=== PATIENT | female | born 1935 | race Caucasian/White ===

== ENCOUNTER → 2017-04-19 | Outpatient (CLI) | payer MEDICARE, BC ==
[~2017-04-19] MED LIST: AMBIEN 5MG TABLE5 MG PO; BP MED; CALCIUM + D 6001 TAB PO; CO Q-1050 MG PO; CRANBERRY1 CAP PO; CULTURELLE10 Billion PO; ESTRACE0.1 MG/GM VG; GLUCOSAMINE S1000 MG PO; HCTZ 25MG TAB25 MG PO; LIPITOR 10MG10 MG PO; LUTEIN20 MG; MACRODANTIN50 MG/CA1 PO; MAREPA1200 MG PO; NEXIUM 20MG CAP20 MG PO; NEXIUM 40MG40 MG PO; OMEPRAZOLE40 MG PO; PEPCID 20MG TAB20 MG PO; PRILOSEC 20MG20 MG PO; PRINIVIL10 MG PO; TRIAMTERENE AND1 TA1 PO; VITAMIN D31000 IU PO; WATER PILL; ZOLPIDEM TART5 MG PO; [UNRECOGNIZED DRUG - OTHER] PO
== END ==
LOC: COL.RAD 07:44
DX: M48.061 Spinal stenosis, lumbar region without neurogenic claudication (principal); M51.16 Intervertebral disc disorders with radiculopathy, lumbar region; M46.86 Other specified inflammatory spondylopathies, lumbar region; M47.26 Other spondylosis with radiculopathy, lumbar region

== ENCOUNTER → 2017-06-24 | Outpatient (CLI) | payer MEDICARE, BC ==
[~2017-06-24] MED LIST changes: +ADVIL200 MG PO; +CALCIUM 600MG+D1 TAB PO; +CIPRO750 MG PO; +CRANBERRY FRUI405 MG PO; -CRANBERRY1 CAP PO; +EPA FISH OIL1 SGL PO; +LUTEIN20 M1 PO; -LUTEIN20 MG; -MAREPA1200 MG PO
== END ==
LOC: MC.RAD 09:34
DX: Z12.31 Encounter for screening mammogram for malignant neoplasm of breast (principal)

== ENCOUNTER 2018-06-16 09:00 | Outpatient (RCR) | payer MEDICARE, BC | END 2018-07-19 | disposition home or self-care (01) | LOC: WSST | DX: I10 Essential (primary) hypertension (principal); R49.0 Dysphonia; J38.7 Other diseases of larynx | CPT/HCPCS: G9171-GN; G9172-GN ==

== ENCOUNTER → 2018-07-15 | Outpatient (CLI) | payer MEDICARE, BC | LOC: COL.RAD 08:40 | DX: R74.0 Nonspecific elevation of levels of transaminase and lactic acid dehydrogenase [LDH] (principal); Z90.49 Acquired absence of other specified parts of digestive tract ==

== ENCOUNTER → 2018-07-21 | Outpatient (CLI) | payer MEDICARE, BC | LOC: MC.RAD 07:54 | DX: Z12.31 Encounter for screening mammogram for malignant neoplasm of breast (principal) ==

== ENCOUNTER → 2019-08-17 | Outpatient (CLI) | payer MEDICARE, BC | LOC: MC.RAD 08:45 | DX: Z12.31 Encounter for screening mammogram for malignant neoplasm of breast (principal) ==

== ENCOUNTER → 2020-08-20 | Outpatient (CLI) | payer MEDICARE, BC | LOC: MC.RAD 08:58 | DX: Z12.31 Encounter for screening mammogram for malignant neoplasm of breast (principal) ==

== ENCOUNTER 2020-10-16 20:16 | Observation (INO) | payer MEDICARE, BC ==
[~2020-10-16] VITALS: Ht 160 cm; Wt 71.3 kg
[2020-10-16] MEDS ORDERED: COZAAR100 MG PO (20:34)
[2020-10-16] MEDS ORDERED: PROTONIX 40MG T40 MG PO (20:34)
[2020-10-16] MEDS ORDERED: SONATA5 MG PO (20:35)
[2020-10-16 20:56] LABS: BASO % 0.8 % (0.0-2.0); EOS # 0.3 (0.0-0.7); GRAN # 2.5 (1.4-6.5); GRAN % 47.9 % (42.2-75.2); HEMATOCRIT 41.4 % (37.0-47.0); HEMOGLOBIN 12.7 g/dl (12.5-16.0); LYMPH # 1.9 (1.2-3.4); LYMPH % 37.2 % (20.0-51.0); MEAN CELL VOLUME 90 fl (80.0-100.0); MEAN CORPUSCULAR HEMOGLOBIN 28 pg (27.0-31.0); MEAN CORPUSCULAR HGB CONC 31 g/dl (33.0-37.0); MEAN PLATELET VOLUME 9.8 fl (7.4-10.4); MONO # 0.4 (0.1-0.6); MONO % 7.7 % (1.7-9.3); PLATELET COUNT 209 K/mm3 (130-400); RED BLOOD COUNT 4.61 M/mm3 (4.10-5.30); REDCELL DISTRIBUTION WIDTH-CV 12.8 % (11.5-14.5)
[2020-10-16] MEDS ORDERED: LASIX 20MG TABL20 MG PO (20:57)
[2020-10-16] MEDS ORDERED: ESTROGEL0.06% TOP (20:58)
[2020-10-16] MEDS ORDERED: TOPROL XL 25MG25 MG PO (21:01)
[2020-10-16] MEDS ORDERED: ASPIRIN 81M81 MG/TA2 PO (21:03)
[2020-10-16] MEDS ORDERED: ESTRACE0.1 MG/GM VG (21:22)
[2020-10-16 21:23] LABS: ALANINE AMINOTRANSFERASE 16 U/L (4-34); ALBUMIN 4.2 gm/dL (3.5-5.0); ALKALINE PHOSPHATASE 71 U/L (50-136); ANION GAP 8 mmol/L (7-16); AST,SGOT 37 U/L (15-37); BILIRUBIN,TOTAL 0.4 mg/dL (0.0-1.0); BLOOD UREA NITROGEN 17 mg/dL (7-17); CALCIUM 10.4 mg/dL (8.4-10.2); CARBON DIOXIDE 25 mmol/L (22-30); CHLORIDE 106 mmol/L (98-107); CREATININE, serum 1.05 (0.52-1.25); GLUCOSE 121 mg/dL (74-106); POTASSIUM 3.7 mmol/L (3.4-5.0); SODIUM 138 mmol/L (137-145); TOTAL PROTEIN 7.4 gm/dL (6.4-8.2)
[2020-10-16 21:37] LABS: TROPONIN-I < 0.012 ng/mL (0.000-0.035)
[2020-10-16 22:57] LABS: INR 0.9 (0.8-3.0); PROTHROMBIN TIME 10.5 SECONDS (9.7-12.8)
[2020-10-16 23:01] LABS: CHOLESTEROL RISK RATIO 2.1; MAGNESIUM 2.3 mg/dL (1.6-2.3)
[2020-10-16 23:47] VITALS: BP 150/72; PULSE 74; TEMP 97.7
[2020-10-17] VITALS (12 sets, daily range): BP systolic 108–166; BP diastolic 48–77; PULSE 60–86; TEMP 97.7–98.1
--- NOTE | 2020-10-17 04:03 | NUR ---
PATIENT ARRIVED TO ROOM 317 AND WAS ABLE TO AMBULATE INDEPENDENTLY TO HER BED. HEPARIN DRIP INFUSING. PATIENT ALERT AND ORIENTED X'4, V/S STABLE. NO REQUESTS OR CONCERNS VERBALIZED BY PATIENT.
[2020-10-17 05:32] LABS: HEMATOCRIT 37.1 % (37.0-47.0); HEMOGLOBIN 11.3 g/dl (12.5-16.0); MEAN CELL VOLUME 89 fl (80.0-100.0); MEAN CORPUSCULAR HEMOGLOBIN 27 pg (27.0-31.0); MEAN CORPUSCULAR HGB CONC 31 g/dl (33.0-37.0); MEAN PLATELET VOLUME 9.3 fl (7.4-10.4); PLATELET COUNT 177 K/mm3 (130-400); RED BLOOD COUNT 4.16 M/mm3 (4.10-5.30); REDCELL DISTRIBUTION WIDTH-CV 12.8 % (11.5-14.5)
--- NOTE | 2020-10-17 06:14 | NUR ---
HEPARIN DRIP STOPPED AT 0600. RATE CHANGED TO 5.5ML'S PER HOUR AND WILL RESTART AT 0700 AND REDRAW AT 1300 ORDERED.
--- NOTE | 2020-10-17 07:35 | NUR ---
ECHO AT BEDSIDE
--- NOTE | 2020-10-17 08:00 | NUR ---
PATIENT IS A&O. VSS WITH TELE INPLACE. PATIENT DENIES SOA OR CHEST PAIN. ECHO OBTAINED THIS AM. NPO FOR HEART CATH LATER TODAY. HEAD TO TOE ASSESSMENT COMPLETE, SEE CHARTING. AM MEDS GIVEN. NO OTHER NEEDS AT THIS TIME. CALL LIGHT IN REACH.
--- NOTE | 2020-10-17 10:12 | NUR ---
Initial visit; Patient thanked Ob Tech for offering God's blessings and letting her know of the availability of spiritual care at our hospital.
--- NOTE | 2020-10-17 14:00 | NUR ---
PATIENT GOING DOWN TO SIGNAL CIRCUIT DESIGNER. CONSENT ON CHART.
--- NOTE | 2020-10-17 15:45 | NUR ---
Forestry Aid Technician met with the patient's , Ld to complete intake. The patient was out of the room for a procedure. The patient and Ld live in [place]. The patient does not use DME and is independent with ADLs. The patient's PCP is Dr. Gary and patient receives medications from [facility]. The patient has advanced directives in the form of a living will in the EMR. The plan is to return home at discharge. Ld will provide transportation. Discharge disposition: Return home with , Ld
--- NOTE | 2020-10-17 15:59 | NUR ---
PATIENT BACK IN ROOM POST HEART CATH. NO INTERVENTION. VSS. AT BEDSIDE.
--- NOTE | 2020-10-17 18:00 | NUR ---
RELEASED 5CC OF AIR FROM [facility] PER ORDERS. IF NO BLEEDING WILL REPEAT LETTING OUT ANOTHER 5CC OF AIR IN 30 MINUTES.
--- NOTE | 2020-10-17 18:30 | NUR ---
PATIENT C/O FLORES, GAVE PRN TYLENOL. RELEASED ANOTHER 5CC OF AIR FROM [facility]. NO BLEEDING NOTED. PATIENT'S TALKED WITH ON PHONE. SEE DISCHARGE ORDERS.
--- NOTE | 2020-10-17 19:31 | NUR ---
DISCHARGED PATIENT HOME WITH FAMILY. WENT OVER DISCHARGE ORDERS AND INSTRUCTIONS WITH PATIENT AND HER AND THEY VERBALIZED UNDERSTANDING. PATIENT ALERT AND ORIENTED X'S 4, RIGHT RADIAL SITE CLEAN, DRY, AND INTACT, V/S STABLE, DENIES N/V, AND AMBULATING INDEPENDENTLY. IV REMOVED. ALL QUESTIONS ANSWERED.
== END 2020-10-17 19:30 | disposition home or self-care (01) ==
LOC: COL.ER 20:16 → MEDICAL 21:41
PROVIDERS: Nurse Practitioner Family; ADMIT Emergency Medicine
DX: I20.0 Unstable angina (principal); I10 Essential (primary) hypertension; E78.5 Hyperlipidemia, unspecified; K21.9 Gastro-esophageal reflux disease without esophagitis; N39.0 Urinary tract infection, site not specified; E55.9 Vitamin D deficiency, unspecified; M19.90 Unspecified osteoarthritis, unspecified site; E87.6 Hypokalemia; Z88.8 Allergy status to other drugs, medicaments and biological substances; Z79.899 Other long term (current) drug therapy; Z79.82 Long term (current) use of aspirin; Z90.49 Acquired absence of other specified parts of digestive tract; Z89.432 Acquired absence of left foot
CPT/HCPCS: C1769; G0378; J1644; J2250; J3010; J7030; Q9967

== ENCOUNTER → 2021-01-10 | Outpatient (CLI) | payer MEDICARE, BC ==
[~2021-01-10] MED LIST changes: +ASPIRIN 81M81 MG/TA2 PO; +COZAAR100 MG PO; +ESTROGEL0.06% TOP; +LASIX 20MG TABL20 MG PO; +PROTONIX 40MG T40 MG PO; +SONATA5 MG PO; +TOPROL XL 25MG25 MG PO
== END ==
LOC: COL.RAD 10:44
DX: N32.9 Bladder disorder, unspecified (principal); N39.0 Urinary tract infection, site not specified

== ENCOUNTER 2021-09-15 15:33 | Emergency (ER) | payer MEDICARE, BC ==
[~2021-09-15] VITALS: Ht 160 cm; Wt 67.3 kg
[2021-09-15 16:31] VITALS: BP 132/67; PULSE 72; TEMP 98
== END 2021-09-15 16:35 | disposition home or self-care (01) ==
LOC: COL.ER 15:33
DX: K64.8 Other hemorrhoids (principal); I10 Essential (primary) hypertension; Z87.440 Personal history of urinary (tract) infections; Z95.5 Presence of coronary angioplasty implant and graft; Z79.899 Other long term (current) drug therapy

== ENCOUNTER 2021-09-22 14:14 | Emergency (ER) | payer MEDICARE, BC ==
[~2021-09-22] VITALS: Ht 157.5 cm; Wt 66.8 kg
[2021-09-22 15:02] LABS: BASO % 0.5 % (0.0-2.0); EOS # 0.3 K/mm3 (0.0-0.7); EOS % 3.8 % (0.0-4.0); GRAN # 4.4 K/mm3 (1.4-6.5); GRAN % 57.9 % (42.2-75.2); LYMPH % 25.9 % (20.0-51.0); MEAN CELL VOLUME 90 fl (80.0-100.0); MEAN CORPUSCULAR HGB CONC 31 g/dl (33.0-37.0); MONO # 0.8 K/mm3 (0.1-0.6); MONO % 10.7 % (1.7-9.3); PLATELET COUNT 263 K/mm3 (130-400); RED BLOOD COUNT 3.43 M/mm3 (4.10-5.30); REDCELL DISTRIBUTION WIDTH-CV 13.5 % (11.5-14.5)
[2021-09-22 15:08] LABS: ALBUMIN 3.7 gm/dL (3.4-4.8); CREATININE, serum 1.05 mg/dL (0.57-1.11); POTASSIUM 4.1 mmol/L (3.5-4.5); TOTAL PROTEIN 6.8 gm/dL (6.2-8.1)
[2021-09-22 15:14] LABS: HEMATOCRIT 30.7 % (37.0-47.0); HEMOGLOBIN 9.6 g/dl (12.5-16.0); MEAN CORPUSCULAR HEMOGLOBIN 28 pg (27-31)
[2021-09-22 15:16] LABS: TROPONIN-I 0.484 ng/mL (0.00-0.033)
[2021-09-22 15:17] LABS: PROTHROMBIN TIME 10.7 SECONDS (9.7-12.8)
[2021-09-22 15:20] LABS: PARTIAL THROMBOPLASTIN TIME 33.1 SECONDS (26.0-37.0)
[2021-09-22 17:20] VITALS: BP 141/59; PULSE 81
== END 2021-09-22 17:20 | disposition home or self-care (01) ==
LOC: COL.ER 14:14
PROVIDERS: Emergency Medicine
DX: R55 Syncope and collapse (principal); R79.89 Other specified abnormal findings of blood chemistry

== ENCOUNTER 2021-10-10 08:42 | Emergency (ER) | payer MEDICARE, BC ==
[~2021-10-10] VITALS: Ht 160 cm; Wt 66.4 kg
[2021-10-10 08:52] VITALS: TEMP 97.5
[2021-10-10 10:12] LABS: BASO % 0.9 % (0.0-2.0); EOS # 0.2 K/mm3 (0.0-0.7); EOS % 4.3 % (0.0-4.0); GRAN # 2.5 K/mm3 (1.4-6.5); GRAN % 56.2 % (42.2-75.2); HEMATOCRIT 29.4 % (37.0-47.0); HEMOGLOBIN 8.8 g/dl (12.5-16.0); LYMPH # 1.2 K/mm3 (1.2-3.4); LYMPH % 28.1 % (20.0-51.0); MEAN CELL VOLUME 86 fl (80.0-100.0); MEAN CORPUSCULAR HEMOGLOBIN 26 pg (27-31); MEAN CORPUSCULAR HGB CONC 30 g/dl (33.0-37.0); MEAN PLATELET VOLUME 9.5 fl (7.4-10.4); MONO # 0.4 K/mm3 (0.1-0.6); PLATELET COUNT 263 K/mm3 (130-400); RED BLOOD COUNT 3.41 M/mm3 (4.10-5.30)
[2021-10-10 10:24] LABS: ALBUMIN 3.6 gm/dL (3.4-4.8); BILIRUBIN,TOTAL 0.5 mg/dL (0.2-1.2); CALCIUM 9.7 mg/dL (8.4-10.2); CREATININE, serum 0.94 mg/dL (0.57-1.11); POTASSIUM 4.4 mmol/L (3.5-4.5); TOTAL PROTEIN 6.4 gm/dL (6.2-8.1)
[2021-10-10 11:14] VITALS: BP 122/68; PULSE 94
== END 2021-10-10 11:22 | disposition left against medical advice (07) ==
LOC: COL.ER 08:42
PROVIDERS: Personal Emergency Response Attendant
DX: K92.2 Gastrointestinal hemorrhage, unspecified (principal); D64.9 Anemia, unspecified; Z90.49 Acquired absence of other specified parts of digestive tract

== ENCOUNTER 2021-10-15 11:21 | Outpatient (RCR) | payer MEDICARE, BC | END 2021-10-16 | disposition home or self-care (01) | LOC: COL.CR | DX: Z48.812 Encounter for surgical aftercare following surgery on the circulatory system (principal); Z95.2 Presence of prosthetic heart valve ==

== ENCOUNTER → 2021-11-10 | Outpatient (CLI) | payer MEDICARE, BC | LOC: MC.RAD 10-03 08:00 | DX: Z12.31 Encounter for screening mammogram for malignant neoplasm of breast (principal) ==

== ENCOUNTER 2021-11-14 10:33 | Outpatient (RCR) | payer MEDICARE, BC | END 2021-11-15 | disposition home or self-care (01) | LOC: COL.CR | DX: Z48.812 Encounter for surgical aftercare following surgery on the circulatory system (principal); Z95.2 Presence of prosthetic heart valve ==

== ENCOUNTER 2021-12-12 14:21 | Outpatient (RCR) | payer MEDICARE, BC | END 2021-12-16 | disposition home or self-care (01) | LOC: COL.CR | DX: Z48.812 Encounter for surgical aftercare following surgery on the circulatory system (principal); Z95.2 Presence of prosthetic heart valve ==

== ENCOUNTER 2022-01-02 12:11 | Outpatient (RCR) | payer MEDICARE, BC | END 2022-01-15 | disposition home or self-care (01) | LOC: COL.CR | DX: Z48.812 Encounter for surgical aftercare following surgery on the circulatory system (principal); Z95.2 Presence of prosthetic heart valve ==

== ENCOUNTER 2022-01-16 06:40 | Outpatient (RCR) | payer MEDICARE, BC | END 2022-02-15 | LOC: COL.CR | DX: Z29.8 Encounter for other specified prophylactic measures (principal); Z95.2 Presence of prosthetic heart valve ==

== ENCOUNTER → 2023-05-13 | Outpatient (CLI) | payer MEDICARE, BC | LOC: CANSCHCLI → MC.RAD 08:39 | DX: Z12.31 Encounter for screening mammogram for malignant neoplasm of breast (principal) ==